=== PATIENT | female | born 1985 | race Caucasian/White ===

== ENCOUNTER → 2017-11-27 | Outpatient (CLI) | payer BC | END | disposition home or self-care (01) | LOC: C.PATHSPEC 12:50 | PROVIDERS: ATTEND Obstetrics & Gynecology | DX: R87.810 Cervical high risk human papillomavirus (HPV) DNA test positive (principal); R87.612 Low grade squamous intraepithelial lesion on cytologic smear of cervix (LGSIL) ==

== ENCOUNTER 2021-10-12 15:37 | Inpatient (IN) ==
--- NOTE | 2021-10-12 15:56 | History & Physical Report ---
Date of Service October 12, 2021 Assessment & Plan (1) at 37 weeks gestation or greater with abnormal testing: Plan: 38+2 Patient has had a history of abnormal testing over the last week with abnormal nonstress test requiring prolonged monitoring in labor and delivery and subsequent biophysical profiles today her nonstress test was reviewed and was not reactive in the office additionally it was noted that her Doppler recently done in the hospital was elevated as well there was no reversed end-diastolic flow but there was an elevated Doppler. Dr. Fortune in the office reviewed this case with [facility] maternal- medicine their recommendation at this time was to deliver the baby patient presents on labor and delivery and I reviewed this with her I agree delivery should be enacted as there are risks and waiting specifically stillbirth I discussed 2 potential options 1 would be induction of labor and 1 would be section I am worried with an induction of labor that the baby may not tolerate labor as there is an elevated Doppler and she is repeatedly for performed poorly on nonstress tests I am worried that the heart rate tracing will not allow a proper induction of labor however I did offer this to the patient I said that potentially we could do this and if the tracing worsened we would proceed to section I also discussed the option of proceeding directly to section we discussed that because of this is that it is a major surgery we discussed the risks of this however under the circumstances I think this is what the patient favors with the abnormal testing and concern for placenta not functioning at its best. section. The patient was counseled to the nature of the procedure including alternatives such as labor. Risks were discussed including bleeding infection injury to bowel bladder ureter vessels and even baby. Deep Vein thrombosis, pulmonary embolus discussed. Breakdown of incision reviewed. Deep vein thrombosis pulmonary embolus hernia and failure of the incision to heal were discussed Patient verbalized understanding of this and was given ample time to ask questions History of Present Illness Primary Care Provider: Mikhail Nowak MD Allergies Allergy/AdvReac Type Severity Reaction Status Date / Time amoxicillin [From Augmentin] Allergy Gastrointestinal Verified 10/12/21 14:14 Upset buspirone [From BuSpar] Allergy Irritable Verified 10/12/21 14:14 clavulanic acid Allergy Gastrointestinal Verified 10/12/21 14:14 [From Augmentin] Upset Home Medications Medication Instructions Recorded Confirmed Type albuterol sulfate 90 mcg/actuation INHALATION gm 11/19/18 10/12/21 History aerosol inhaler levothyroxine 50 mcg tablet 100 mcg PO DAILY tab 11/19/18 10/12/21 History lorazepam 0.5 mg tablet 0.5 mg PO DAILY PRN tab 11/19/18 10/12/21 History mesalamine 800 mg tablet,delayed 1,600 mg PO DAILY tab 11/19/18 10/12/21 History release valacyclovir 1 gram tablet 1,000 mg PO Q12H PRN tab 11/19/18 10/12/21 History insulin admin supplies [InPen (for SUBCUT 03/10/21 10/12/21 History Novolog or Fiasp)] insulin detemir U-100 100 unit/mL 48 unit SUBCUT QPM 03/10/21 10/12/21 History subcutaneous solution (Levemir U-100 Insulin) sertraline 25 mg tablet (Zoloft) 25 mg PO DAILY 06/14/21 10/12/21 History aspirin 81 mg chewable tablet 81 mg PO DAILY 10/07/21 10/12/21 History fluticasone furoate 200 1 inh INHALATION DAILY 10/07/21 10/12/21 History mcg-vilanterol 25 mcg/dose inhalation powder (Breo Ellipta) Patient History Medical History (Updated 10/08/21 @ 15:59 by Josie Sawyer MD) Anxiety Asthma Crohn's disease of both small and large intestine with complication Diabetes dx type 2 in Mar 2016 Encounter for preconception consultation GERD (gastroesophageal reflux disease) Hypothyroidism Recurrent major depressive disorder in partial remission Surgical History H/O colonoscopy History of colposcopy History of wisdom tooth extraction Family History (Updated 03/10/21 @ 12:13 by Yas Andujar RN) Grandmother (Maternal) Breast cancer Father Dyslipidemia Grandfather (Maternal) Diabetes Dyslipidemia Coronary heart disease Grandmother (Paternal) Breast cancer Gastrointestinal complaints, nonspecific Denies family history of Ovarian cancer Prostate cancer Colorectal cancer Social History (Updated 03/10/21 @ 15:09 by Yas Andujar RN) Smoking Status: Never smoker Second Hand Exposure: No; Hx Alcohol Use: No Hx Substance Use: No Preferred Language: Romanian Communication Ability: Effective Visual Impairment: No Limitations Hearing Ability: Normal Professor Of Visual Arts Required: No Beliefs That Will Affect Care: None marital status: marital status details: Freedom Siegel (37) Current Living Situation: Spouse Current Living Situation Comment: Lives with . 1 Dog current occupational status: employed current occupation: Teacher Feels Safe at Home: Yes Assistive Devices: None Review of Systems as per Subjective / HPI Physical Exam Constitutional: WD/WN, vitals as above well developed and well nourished Respiratory: normal respiratory effort, lungs clear to auscultation normal respiratory effort Cardiovascular: RRR, no murmur, no edema Gastrointestinal (Abdomen): normal bowel sounds, soft, nontender, no hepatosplenomegaly Coding Level of Care Code None Diagnoses at 37 weeks gestation or greater with abnormal testing
[2021-10-12] MEDS ORDERED: CITRIC ACID/SODIUM CITRATE 15 ML UDC PO SCH (16:00)
[2021-10-12] MEDS ORDERED: LACTATED RINGER'S 1,000 ML IV SCH (16:00)
[2021-10-12] MEDS ORDERED: ceFAZolin 2000MG 2,000 MG/15 ML SYR IV SCH (16:00)
[2021-10-12 16:30] LABS: Basophils # (auto) 0.03 K/uL (0-0.2); Basophils % (auto) 0.2 %; Eosinophils # (auto) 0.28 K/uL (0-0.5); Hematocrit (blood only) 30.5 % (37-47); Hemoglobin 10.3 g/dL (12.0-16.0); Immature Granulocytes # (auto) 0.11 K/uL (0.00-0.02); Immature Granulocytes % (auto) 0.8 %; Lymphocytes # (auto) 2.39 K/uL (1.2-3.4); Lymphocytes % (auto) 17.1 %; Mean Corpuscular Hemoglobin 26.8 pg (25-34); Mean Corpuscular Hgb Conc 33.8 g/dL (32-36); Mean Corpuscular Volume 79.4 fL (80-100); Mean Platelet Volume 11.3 fL (7.4-10.4); Monocytes # (auto) 0.84 K/uL (0.11-0.59); Neutrophils # (auto) 10.33 K/uL (1.4-6.5); Neutrophils % (auto) 73.9 %; Platelet Count 209 K/uL (130-400); RDW Coefficient of Variation 13.1 % (11.5-14.5); RDW Standard Deviation 37.9 fL (36.4-46.3); Red Blood Count 3.84 M/uL (4.2-5.4); White Blood Count 13.98 K/uL (4.8-10.8)
--- NOTE | 2021-10-12 16:55 | Anesthesiology Consultation ---
Date of Service October 12, 2021 Assessment & Plan (1) Encounter for pre-operative examination: Chart Review Chart Review: Acceptable Risk for Surgery and Patient NOT seen in Pre Admission Testing Consults Requested none History Height/Weight Height: 4 ft 11 in Weight: 64.41 kg Allergies Allergy/AdvReac Type Severity Reaction Status Date / Time amoxicillin [From Augmentin] Allergy Gastrointestinal Verified 10/12/21 16:01 Upset buspirone [From BuSpar] Allergy Irritable Verified 10/12/21 16:01 clavulanic acid Allergy Gastrointestinal Verified 10/12/21 16:01 [From Augmentin] Upset Medications Home Medications Medication Instructions Recorded Confirmed Last Taken albuterol sulfate 90 mcg/actuation INHALATION PRN gm 11/19/18 10/12/21 Unknown aerosol inhaler levothyroxine 50 mcg tablet 100 mcg PO DAILY tab 11/19/18 10/12/21 10/06/21 22:00 lorazepam 0.5 mg tablet 0.5 mg PO DAILY PRN tab 11/19/18 10/12/21 Unknown mesalamine 800 mg tablet,delayed 1,600 mg PO DAILY tab 11/19/18 10/12/21 10/06/21 22:00 release valacyclovir 1 gram tablet 1,000 mg PO Q12H PRN tab 11/19/18 10/12/21 Unknown insulin admin supplies [InPen (for SUBCUT 03/10/21 10/12/21 Unknown Novolog or Fiasp)] insulin detemir U-100 100 unit/mL 48 unit SUBCUT QPM 03/10/21 10/12/21 10/06/21 22:00 subcutaneous solution (Levemir U-100 Insulin) sertraline 25 mg tablet (Zoloft) 25 mg PO DAILY 06/14/21 10/12/21 10/11/21 21:00 aspirin 81 mg chewable tablet 81 mg PO DAILY 10/07/21 10/12/21 10/06/21 22:00 fluticasone furoate 200 1 inh INHALATION DAILY 10/07/21 10/12/21 10/07/21 08:00 mcg-vilanterol 25 mcg/dose inhalation powder (Breo Ellipta) Past Medical History Medical History Anxiety Asthma Crohn's disease of both small and large intestine with complication Diabetes dx type 2 in Mar 2016 Encounter for preconception consultation GERD (gastroesophageal reflux disease) Hypothyroidism Recurrent major depressive disorder in partial remission Past Family History Family History Grandmother (Maternal) Breast cancer Father Dyslipidemia Grandfather (Maternal) Diabetes Dyslipidemia Coronary heart disease Grandmother (Paternal) Breast cancer Gastrointestinal complaints, nonspecific Denies family history of Ovarian cancer Prostate cancer Colorectal cancer Past Surgical History Surgical History H/O colonoscopy History of colposcopy History of wisdom tooth extraction Social History Smoking Status: Never smoker Hx Alcohol Use: No Hx Substance Use: No substance use type: does not use Physical Exam Vital Signs Last Vital Signs Temp 99.3 F 10/12/21 16:05 Pulse 97 H 10/12/21 16:21 Resp 18 10/12/21 16:05 BP 153/82 H 10/12/21 16:21 Testing Laboratory Results 10/12/21 16:08
[2021-10-12] MEDS ORDERED: fentaNYL citrate 100 MCG/2 ML VIAL ONE (17:19)
[2021-10-12] MEDS ORDERED: MoRPHine SULFATE PF 1 MG/ML 10 ML AMP/VIAL ONE (17:19)
[2021-10-12] MEDS ORDERED: NALOXONE HCL 0.4 MG/1 ML VIAL/CARP IV PRN (18:20)
[2021-10-12] MEDS ORDERED: LACTATED RINGER'S 500 ML IV PRN (18:20)
[2021-10-12] MEDS ORDERED: diphenhydrAMINE 50 MG/ML VIAL IV PRN (18:20)
[2021-10-12] MEDS ORDERED: NALOXONE HCL 1 MG in SODIUM CHLORIDE 0.9% 1000ML 1,000 ML IV PRN (18:20)
[2021-10-12] MEDS ORDERED: KETOROLAC 30 MG/ML VIAL IV PRN (18:20)
[2021-10-12] MEDS ORDERED: ACETAMINOPHEN 325 MG TAB PO PRN (18:20)
[2021-10-12] MEDS ORDERED: MoRPHine SULFATE PF 1 MG/ML 10 ML AMP/VIAL INT SPINAL ONE (18:20)
[2021-10-12] MEDS ORDERED: NALOXONE HCL 0.08 MG in SYRINGE 1.8 ML IV PRN (18:20)
[2021-10-12] MEDS ORDERED: ePHEDrine sulfate 50 MG/ML AMP IV PRN (18:20)
[2021-10-12] MEDS ORDERED: HYDROmorphone INJ 0.5 MG/0.5 ML SYR IV PRN (18:20)
[2021-10-12] MEDS ORDERED: NALBUPHINE HCL INJ 10 MG/ML AMP IV PRN (18:20)
[2021-10-12] MEDS ORDERED: NO NARCOTICS OR SEDATIVES SCH (18:30)
[2021-10-12] MEDS ORDERED: SODIUM CHLORIDE 0.9% 1000ML 1,000 ML IV SCH (18:30)
[2021-10-12] MEDS ORDERED: DC INTRASPINAL MORPHINE SCH (18:30)
--- NOTE | 2021-10-12 19:01 | Operative Report ---
PG Post Operative Report Pre & Post Diagnosis Operation Date: 10/12/21 17:50 Pre-Op Diagnosis: at 37 weeks with abnormal testing. Post-Op Diagnosis: at 37 weeks with abnormal testing. I identified the patient and participated in the time-out.: Yes Procedure Operation Date: 10/12/21 17:50 Actual Procedures p Section in LD for living female child at 1825(Bilateral) - Sergey Bae MD, FACOG Surgeon Sergey Bae MD, FACOG Coordinate Measuring Machine Technician . Estimated Blood Loss 500 Findings Consistent with Post-Op Diagnosis Specimens cord gases, blood, placenta Description of Procedure Regional anesthetic had been given by anesthesia patient was prepped and draped with a leftward tilt preoperative antibiotics had been given in appropriate timing by anesthesiology. Once the prep was allowed to fully dry timeout was performed. Pickups with teeth were used to test the incision area was found to be adequate for incision as the patient did not feel sharp pain. Scalpel was used to make a Pfannenstiel incision on the lower abdomen. We then cut through the subcutaneous fat down to the level of the anterior rectus sheath fascia this was cut in the midline and then extended laterally with the curved Wells scissors. At this stage we then placed 2 Dominique clamps on the anterior aspect of the fascia. Using the curved Wells's we are able to dissect the fascia superiorly away from the rectus muscles. Care was taken to maintain hemostasis. Dominique clamps were then placed to the inferior aspect of the anterior sheath of the fascia. Fascia was then dissected away from the rectus muscles inferiorly towards the pubic bone. A Dominique was then placed in the midline both inferiorly and superiorly. This was to allow exposure by retraction rectus muscles were in the midline with were then able to cut through the peritoneum and then enter the peritoneal cavity. Opening was enlarged to allow exposure of the peritoneal cavity both superiorly and inferiorly. Once adequate space was obtained a bladder retractor was placed to expose the lower segment Metzenbaums were used to dissect the bladder flap inferiorly away from the uterus. This was done sharply bladder retractor was then repositioned to expose the lower segment of the uterus Fresh scalpel was used to make a low transverse incision on the uterus. Uterus was then entered bluntly with the operators finger, membranes ruptured and the opening was enlarged using the operators fingers bluntly pulling superiorly and inferiorly to allow exposure. Baby was delivered by first flexion of the head elevation of the head out of the pelvis and then pressure by the bakery assistant on the maternal abdomen. Baby's head was then delivered mouth and then nares were suctioned and then using gentle traction the baby was fully delivered. Live vigorous infant. Fluid was clear cord clamped and cut cord gases obtained cord blood obtained baby handed to pediatrics. Placenta removed was removed with traction we ensure the entire placenta was removed with a moist lap sponge into the uterus. Loose nuchal x1 Uterus was then exteriorized. IV Pitocin had been started by anesthesia tone improved there were no extensions the uterus was then closed using 0 Monocryl in a 2 layer closure the first layer closed in a running locked fashion from left to right and then a second closure from left to right in a running nonlocked fashion. At this stage hemostasis was excellent. Uterus was placed back in the peritoneal cavity with suction irrigation out and inspection of the uterus at this stage revealed excellent hemostasis Retractors were removed urine color was clear at this stage of the case we inspected the rectus muscles they were hemostatic fascia was closed with 0 Vicryl subcutaneous fat was irrigated and closed with 3-0 Vicryl skin closed with 4-0 subcuticular Monocryl I attest to the content of the Intraoperative Record and any orders documented therein. Any exceptions are noted below. OB Procedure Charges 81311
[2021-10-12] MEDS ORDERED: KETOROLAC 30 MG/ML VIAL ONE (19:10)
[2021-10-12] MEDS ORDERED: OXYTOCIN 10 UNITS/ML 10ML VIAL ONE (19:10)
[2021-10-12] MEDS ORDERED: ONDANSETRON INJ 2 MG/ML 2 ML VIAL ONE (19:10)
[2021-10-12] MEDS ORDERED: SENNA 8.6 MG TAB PO PRN (19:23)
[2021-10-12] MEDS ORDERED: HYDROCORTISONE ACETATE 25 MG SUPP PR PRN (19:23)
[2021-10-12] MEDS ORDERED: IBUPROFEN 600 MG TAB PO PRN (19:23)
[2021-10-12] MEDS ORDERED: BENZOCAINE 20% AER SPR 82.5 GM CAN EXT PRN (19:23)
[2021-10-12] MEDS ORDERED: MAGNESIUM HYDROXIDE SUSP 30 ML UDC PO PRN (19:23)
[2021-10-12] MEDS ORDERED: DIPHTHERIA/TETANUS/PERTUSSIS 0.5 ML SYR/VIAL IM ONE (19:23)
[2021-10-12 19:31] LABS: Base Excess Cord Venous Blood -3.7 mEq/L (-7.7-1.9); Cord Venous Blood HCO3 24 mmol/L (18.4-26.8); Cord Venous Blood PCO2 50 mmHg (30.4-57.2); Cord Venous Blood PO2 32 mmHg (14.1-43.3); Cord Venous Blood pH 7.28 (7.20-7.44); O2 Saturation Cord Venous Bld 66.9 % (<68)
[2021-10-12 19:32] LABS: Base Excess Cord Arterial Bld 0.3 mEq/L (-9-1.8); CO2 Cord Arterial Blood 89 mmHg (39.1-73.5); HCO3 Cord Arterial Blood 32 mmol/L (19.7-28.5); Oxygen Sat Cord Arterial Blood < 60.0 % (<60); pH Cord Arterial Blood 7.16 (7.1-7.38)
[2021-10-12 19:33] LABS: PO2 Cord Arterial Blood < 6 mmHg (4.1-31.7)
[2021-10-12] MEDS: OXYTOCIN 20 UNITS in LACTATED RINGER'S 1,000 ML IV SCH (20:04)
--- NOTE | 2021-10-12 21:17 | Anesthesiology Progress Note ---
Date of Service October 12, 2021 Anesthesia Post Procedure Vital Signs Vital Signs: Temp Pulse Resp BP Pulse Ox 10/12/21 21:05 79 151/84 H 10/12/21 21:04 82 100 10/12/21 20:59 87 100 10/12/21 20:54 76 100 10/12/21 20:49 82 100 10/12/21 20:44 81 100 10/12/21 20:39 81 98 10/12/21 20:35 98.1 F 78 18 135/82 10/12/21 20:34 79 100 10/12/21 20:29 77 100 10/12/21 20:24 77 100 10/12/21 20:19 71 99 10/12/21 20:14 80 100 10/12/21 20:09 84 100 10/12/21 20:04 97.9 F 74 18 131/80 100 10/12/21 19:59 77 100 10/12/21 19:56 80 90 10/12/21 19:54 81 128/80 100 10/12/21 19:49 80 100 10/12/21 19:46 73 18 126/69 10/12/21 19:44 78 100 10/12/21 19:39 82 98 10/12/21 19:34 97.5 F L 85 18 107/73 100 10/12/21 19:29 84 100 10/12/21 19:25 90 18 107/56 L 10/12/21 19:24 88 100 10/12/21 19:19 94 H 100 10/12/21 19:16 85 18 104/58 L 10/12/21 19:14 89 100 10/12/21 19:13 90 91 10/12/21 19:09 97 H 100 10/12/21 19:04 97.9 F 92 H 18 107/66 100 10/12/21 17:37 83 141/84 H 10/12/21 17:22 98 H 184/96 H 10/12/21 17:06 94 H 177/91 H 10/12/21 16:21 97 H 153/82 H 10/12/21 16:11 93 H 141/83 H 10/12/21 16:05 99.3 F 18 Transfer of Care Handoff Completed per policy Notes Mental Status: alert / awake / arousable and participated in evaluation Patient Amnestic to Procedure: Yes Nausea / Vomiting: adequately controlled Pain: adequately controlled Airway Patency, RR, SpO2: stable & adequate BP & HR: stable & adequate Hydration State: stable & adequate Neuraxial Anesthesia: was administered and sensory block is resolving Anesthetic Complications: no major complications apparent and Pt Satisfied with anesthetic care
[2021-10-12] MEDS: DOCUSATE SODIUM 100 MG CAP PO SCH (22:39)
[2021-10-12] MEDS ORDERED: CARBOHYDRATES FOR HYPOGLYCEMIA PO PRN (22:59)
[2021-10-12] MEDS ORDERED: GLUCOSE 40% GEL 15 GM TUBE PO PRN (22:59)
[2021-10-12] MEDS ORDERED: GLUCAGON FOR INJ 1 MG VIAL SQ PRN (22:59)
[2021-10-12] MEDS ORDERED: GLUCOSE 10 TABS/TUBE PO PRN (22:59)
[2021-10-12] MEDS ORDERED: DEXTROSE 50% 50 ML SYRINGE IV PRN (22:59)
--- NOTE | 2021-10-12 23:02 | Hospitalist Consultation ---
Date of Consultation October 12, 2021 Assessment & Plan (1) Encounter for care and examination after delivery: Final Assessment and Recommendations as follows : state DM2 previously on oral medications, on insulin since Well-controlled as of recent outpatient hemoglobin A1c of 7 last August 2021 hypothyroidism, euthyroid as of recent outpatient TSH IBD, stable on Asacol regimen Anemia of Basal insulin adjusted for clear liquid diet for now, ISS BG goal 1 10-1 40, carb count coverage DVT prophylaxis. SCDs Thank you very much for this consultation. Dr. Dc will follow patient's progress. Text document was generated using [employer] voice recognition software. It may contain grammatical or spelling errors. Kindly contact undersigned for clarification of any documentation item in question. History of Present Illness Reason for Consultation: Medical management Requesting Physician: Dr. Gotti Attending Physician: Sergey Bae MD, FACOG History of Present Illness PCP: Dr. Nowak History obtained from patient and records. Medical history significant for DM2 (previously on oral medications, on insulin since ), hypothyroidism, IBD. Patient underwent section yesterday secondary to abnormal testing. Postop discomfort tolerable. Patient denies chest pain, SOB. Medical History as above Surgical History : Dental surgery, section Family History : Heart disease, DM, breast cancer Personal/Social history : Non-smoker, occasional EtOH intake, schoolteacher Allergies Allergy/AdvReac Type Severity Reaction Status Date / Time amoxicillin [From Augmentin] Allergy Gastrointestinal Verified 10/12/21 16:01 Upset buspirone [From BuSpar] Allergy Irritable Verified 10/12/21 16:01 clavulanic acid Allergy Gastrointestinal Verified 10/12/21 16:01 [From Augmentin] Upset Home Medications Medication Instructions Recorded Confirmed Type albuterol sulfate 90 mcg/actuation INHALATION PRN gm 11/19/18 10/12/21 History aerosol inhaler levothyroxine 50 mcg tablet 100 mcg PO DAILY tab 11/19/18 10/12/21 History lorazepam 0.5 mg tablet 0.5 mg PO DAILY PRN tab 11/19/18 10/12/21 History mesalamine 800 mg tablet,delayed 1,600 mg PO DAILY tab 11/19/18 10/12/21 History release valacyclovir 1 gram tablet 1,000 mg PO Q12H PRN tab 11/19/18 10/12/21 History insulin admin supplies [InPen (for SUBCUT 03/10/21 10/12/21 History Novolog or Fiasp)] insulin detemir U-100 100 unit/mL 48 unit SUBCUT QPM 03/10/21 10/12/21 History subcutaneous solution (Levemir U-100 Insulin) sertraline 25 mg tablet (Zoloft) 25 mg PO DAILY 06/14/21 10/12/21 History aspirin 81 mg chewable tablet 81 mg PO DAILY 10/07/21 10/12/21 History fluticasone furoate 200 1 inh INHALATION DAILY 10/07/21 10/12/21 History mcg-vilanterol 25 mcg/dose inhalation powder (Breo Ellipta) Patient History Medical History Anxiety Asthma Crohn's disease of both small and large intestine with complication Diabetes dx type 2 in Mar 2016 Encounter for preconception consultation GERD (gastroesophageal reflux disease) Hypothyroidism Recurrent major depressive disorder in partial remission Surgical History H/O colonoscopy History of colposcopy History of wisdom tooth extraction Family History Grandmother (Maternal) Breast cancer Father Dyslipidemia Grandfather (Maternal) Diabetes Dyslipidemia Coronary heart disease Grandmother (Paternal) Breast cancer Gastrointestinal complaints, nonspecific Denies family history of Ovarian cancer Prostate cancer Colorectal cancer Social History (Updated 03/10/21 @ 15:09 by Yas Andujar RN) Smoking Status: Never smoker Second Hand Exposure: No; Hx Alcohol Use: No Hx Substance Use: No Preferred Language: Syriac Communication Ability: Effective Visual Impairment: No Limitations Hearing Ability: Normal Truck Chauffeur Required: No Beliefs That Will Affect Care: None marital status: marital status details: Freedom Siegel (37) Current Living Situation: Spouse Current Living Situation Comment: Lives with . 1 Dog current occupational status: employed current occupation: Teacher Feels Safe at Home: Yes Assistive Devices: None Review of Systems Review of Systems: As per HPI, all other systems reviewed and negative Physical Exam Physical Exam: GENERAL: Comfortable, pleasant, no respiratory distress SKIN: Pallor, warm HEENT: Pale palpebral conjunctivae, no ptosis, dry buccal mucosa NECK : Supple, no tenderness CHEST : CTA, no tenderness HEART : RRR, no obvious murmurs ABDOMEN: Some distention, no overt tenderness EXTREMITIES : Minimal LE swelling, no LE tenderness, no other conspicuous deformities noted NEUROLOGIC : Coherent, no facial asymmetry, no other gross focality Results & Data Results & Data ([facility]) Vital Signs (Past 12 Hours) Vital Signs Temp Pulse Resp BP Pulse Ox 10/12/21 22:34 16 99 10/12/21 21:36 36.8 C 88 16 152/88 H 100 10/12/21 21:05 36.7 C 79 18 151/84 H 10/12/21 21:04 82 100 10/12/21 20:59 87 100 10/12/21 20:54 76 100 10/12/21 20:49 82 100 10/12/21 20:44 81 100 10/12/21 20:39 81 98 10/12/21 20:35 36.7 C 78 18 135/82 10/12/21 20:34 79 100 10/12/21 20:29 77 100 10/12/21 20:24 77 100 10/12/21 20:19 71 99 10/12/21 20:14 80 100 10/12/21 20:09 84 100 10/12/21 20:04 36.6 C 74 18 131/80 100 10/12/21 19:59 77 100 10/12/21 19:56 80 90 10/12/21 19:54 81 128/80 100 10/12/21 19:49 80 100 10/12/21 19:46 73 18 126/69 10/12/21 19:44 78 100 10/12/21 19:39 82 98 10/12/21 19:34 36.4 C L 85 18 107/73 100 10/12/21 19:29 84 100 10/12/21 19:25 90 18 107/56 L 10/12/21 19:24 88 100 10/12/21 19:19 94 H 100 10/12/21 19:16 85 18 104/58 L 10/12/21 19:14 89 100 10/12/21 19:13 90 91 10/12/21 19:09 97 H 100 10/12/21 19:04 36.6 C 92 H 18 107/66 100 10/12/21 17:37 83 141/84 H 10/12/21 17:22 98 H 184/96 H 10/12/21 17:06 94 H 177/91 H 10/12/21 16:21 97 H 153/82 H 10/12/21 16:11 93 H 141/83 H 10/12/21 16:05 37.4 C 18 Laboratory Results Laboratory Results WBC 13.98 K/uL (4.8-10.8) H 10/12/21 16:08 RBC 3.84 M/uL (4.2-5.4) L 10/12/21 16:08 Hgb 10.3 g/dL (12.0-16.0) L 10/12/21 16:08 Hct 30.5 % (37-47) L 10/12/21 16:08 MCV 79.4 fL (80-100) L 10/12/21 16:08 MCH 26.8 pg (25-34) 10/12/21 16:08 MCHC 33.8 g/dL (32-36) 10/12/21 16:08 RDW Std Deviation 37.9 fL (36.4-46.3) 10/12/21 16:08 RDW Coeff of Willa 13.1 % (11.5-14.5) 10/12/21 16:08 Plt Count 209 K/uL (130-400) 10/12/21 16:08 MPV 11.3 fL (7.4-10.4) H 10/12/21 16:08 Immature Gran % (Auto) 0.8 % 10/12/21 16:08 Neut % (Auto) 73.9 % 10/12/21 16:08 Lymph % (Auto) 17.1 % 10/12/21 16:08 Day % (Auto) 6.0 % 10/12/21 16:08 Eos % (Auto) 2.0 % 10/12/21 16:08 Baso % (Auto) 0.2 % 10/12/21 16:08 Neut # (Auto) 10.33 K/uL (1.4-6.5) H 10/12/21 16:08 Lymph # (Auto) 2.39 K/uL (1.2-3.4) 10/12/21 16:08 Day # (Auto) 0.84 K/uL (0.11-0.59) H 10/12/21 16:08 Eos # (Auto) 0.28 K/uL (0-0.5) 10/12/21 16:08 Baso # (Auto) 0.03 K/uL (0-0.2) 10/12/21 16:08 Immature Gran # (Auto) 0.11 K/uL (0.00-0.02) H 10/12/21 16:08 Cord ABG pH 7.16 (7.1-7.38) 10/12/21 18:52 Cord ABG pCO2 89 mmHg (39.1-73.5) H 10/12/21 18:52 Cord ABG pO2 < 6 mmHg (4.1-31.7) 10/12/21 18:52 Cord ABG HCO3 32 mmol/L (19.7-28.5) H 10/12/21 18:52 Cord ABG Base Excess 0.3 mEq/L (-9-1.8) 10/12/21 18:52 Cord ABG O2 Sat < 60.0 % (<60) 10/12/21 18:52 Cord VBG pH 7.28 (7.20-7.44) 10/12/21 18:52 Cord VBG pCO2 50 mmHg (30.4-57.2) 10/12/21 18:52 Cord VBG pO2 32 mmHg (14.1-43.3) 10/12/21 18:52 Cord VBG HCO3 24 mmol/L (18.4-26.8) 10/12/21 18:52 Cord VBG Base Excess -3.7 mEq/L (-7.7-1.9) 10/12/21 18:52 Cord VBG O2 Sat 66.9 % (<68) 10/12/21 18:52 Blood Gas Comments SHELL 10/12/21 18:52 Blood Gas Comments SHELL 10/12/21 18:52 SARS-CoV-2, RNA, NAAT NEGATIVE (NEGATIVE) 10/12/21 15:54 Blood Type O Positive 10/12/21 16:08 Antibody Screen NEGATIVE 10/12/21 16:08
[2021-10-13] MEDS: INSULIN ASPART PER UNIT SC SCH ×5 (00:13→21:16)
[2021-10-13] MEDS: SIMETHICONE 80 MG CHEW PO SCH ×5 (01:13→21:09)
[2021-10-13] MEDS: LACTATED RINGER'S 1,000 ML IV SCH ×3 (01:14→11:50)
[2021-10-13] MEDS: OXYTOCIN 20 UNITS in LACTATED RINGER'S 1,000 ML IV SCH (04:30)
--- NOTE | 2021-10-13 06:17 | Obstetrical Progress Note ---
Date of Service October 13, 2021 Assessment & Plan (1) Encounter for care and examination after delivery: Plan: Patient is a 36-year-old now female status post delivered at 38 and 2/7 weeks postop day 1. -GBS(-), Rubella immune, O+, Antibody negative -Continue routine care -Pain control with tylenol, Ibuprofen, oxycodone when able. -Ambulation as tolerated and encouraged -Encouraged , discuss with counsellor if necessary, continue supplementing with formula -Hgb 10.3 -OB f/u appointment in [address] Bae Admission and Anticipated Discharge Date Admission Date: October 12, 2021 Supervising Physician Co-Signing Physician Notes Resident Physician Supervision Note: I was present with Dr. Bush during the history and exam. I discussed the case with the resident and agree with the findings and plan as documented in the note. Any exceptions or clarifications are listed here: [None] Documented By: Sergey Bae MD, FACOG Subjective Patient is a 36-year-old now female status post delivered at 38 and 2/7 weeks postop day 1. complicated by advanced maternal age, type 2 diabetes, and hypothyroidism. Patient overall doing well but does have the complaint of pain. She reports is a 5 out of 10. Reports not having taken any medication except for last night to help her sleep. Encouraged that she is able to take pain medication to help with her symptoms. Otherwise patient reports that she would like to breast-feed but is unsure if it is safe to do with her diabetes and would like to discuss with the gyroscope repairer if this is okay. Passing gas and urinating without difficulty. Notes that her blood sugar is "low" and reporting a level of 105 at the time of interview. Would like to get something to eat. Denies chest pain, shortness of breath, nausea, vomiting, calf pain, or headaches. No other complaints at this time. Review of Systems Review of Systems: All systems reviewed & are unremarkable except as noted in HPI & below Physical Exam Constitutional: WD/WN, vitals as above Eyes: + anicteric sclerae Neck: trachea midline, no thyromegaly Respiratory: normal respiratory effort, lungs clear to auscultation Cardiovascular: RRR, no murmur, no edema Gastrointestinal (Abdomen): Inspection/Auscultation: normal bowel sounds Percussion/Palpation: abdomen soft Diastases recti noted. Musculoskeletal: Head/Neck/Chest: normocephalic and head atraumatic Skin: no rashes, warm and dry Surgical scar noted at the lower abdomen that is clean without any surrounding erythema or discharge. Neurologic: moves all extremities Psychiatric: A+Ox3, euthymic affect Genitourinary: Uterus palpated 2 cm below the umbilicus, firm Results & Data ([facility]) Vital Signs (Past 12 Hours) Vital Signs Temp Pulse Resp BP BP Pulse Ox 10/13/21 04:54 96 10/13/21 04:53 36.8 C 16 131/79 97 10/13/21 04:40 14 96 10/13/21 03:45 15 96 10/13/21 02:21 14 96 10/13/21 01:30 16 97 10/13/21 00:54 36.8 C 16 98 10/13/21 00:25 87 14 136/83 100 10/12/21 23:30 18 98 10/12/21 22:34 16 99 10/12/21 21:36 36.8 C 88 16 152/88 H 100 10/12/21 21:05 36.7 C 79 18 151/84 H 10/12/21 21:04 82 100 10/12/21 20:59 87 100 10/12/21 20:54 76 100 10/12/21 20:49 82 100 10/12/21 20:44 81 100 10/12/21 20:39 81 98 10/12/21 20:35 36.7 C 78 18 135/82 10/12/21 20:34 79 100 10/12/21 20:29 77 100 10/12/21 20:24 77 100 10/12/21 20:19 71 99 10/12/21 20:14 80 100 10/12/21 20:09 84 100 10/12/21 20:04 36.6 C 74 18 131/80 100 10/12/21 19:59 77 100 10/12/21 19:56 80 90 10/12/21 19:54 81 128/80 100 10/12/21 19:49 80 100 10/12/21 19:46 73 18 126/69 10/12/21 19:44 78 100 10/12/21 19:39 82 98 10/12/21 19:34 36.4 C L 85 18 107/73 100 10/12/21 19:29 84 100 10/12/21 19:25 90 18 107/56 L 10/12/21 19:24 88 100 10/12/21 19:19 94 H 100 10/12/21 19:16 85 18 104/58 L 10/12/21 19:14 89 100 10/12/21 19:13 90 91 10/12/21 19:09 97 H 100 10/12/21 19:04 36.6 C 92 H 18 107/66 100
[2021-10-13] MEDS: LEVOTHYROXINE SODIUM 100 MCG TABLET PO SCH (08:45)
[2021-10-13] MEDS: DOCUSATE SODIUM 100 MG CAP PO SCH ×2 (08:46→21:09)
[2021-10-13] MEDS: FERROUS SULFATE 325 MG TAB PO SCH (08:50)
[2021-10-13] MEDS: SERTRALINE HCL 50 MG TABLET PO SCH (08:50)
[2021-10-13] MEDS: PRENATAL VITAMIN 1 TAB PO SCH (08:50)
[2021-10-13 09:26] LABS: Hematocrit (blood only) 25.8 % (37-47); Hemoglobin 8.5 g/dL (12.0-16.0); Mean Corpuscular Hemoglobin 26.2 pg (25-34); Mean Corpuscular Hgb Conc 32.9 g/dL (32-36); Mean Corpuscular Volume 79.4 fL (80-100); Mean Platelet Volume 11.2 fL (7.4-10.4); Platelet Count 186 K/uL (130-400); RDW Coefficient of Variation 13.2 % (11.5-14.5); RDW Standard Deviation 38.3 fL (36.4-46.3); Red Blood Count 3.25 M/uL (4.2-5.4); White Blood Count 13.53 K/uL (4.8-10.8)
[2021-10-13] MEDS ORDERED: MESALAMINE 800 MG TABCR PO SCH (09:40)
[2021-10-13 09:52] LABS: BUN Creatinine Ratio 21.5 (10-20); Calcium 8.1 mg/dl (8.5-10.1); Creatinine Clr Calc Pharmacy 97.6 ml/min; Est GFR (African American) 132.4 ml/min; Est GFR (Non-African American) 114.2 ml/min
[2021-10-13 09:55] LABS: Basophils # (auto) 0.03 K/uL (0-0.2); Basophils % (auto) 0.2 %; Eosinophils # (auto) 0.22 K/uL (0-0.5); Eosinophils % (auto) 1.6 %; Immature Granulocytes # (auto) 0.09 K/uL (0.00-0.02); Immature Granulocytes % (auto) 0.7 %; Lymphocytes # (auto) 2.85 K/uL (1.2-3.4); Lymphocytes % (auto) 21.1 %; Monocytes # (auto) 1.06 K/uL (0.11-0.59); Monocytes % (auto) 7.8 %; Neutrophils # (auto) 9.28 K/uL (1.4-6.5); Neutrophils % (auto) 68.6 %
--- NOTE | 2021-10-13 11:42 | Hospitalist Progress Note ---
Date of Service October 13, 2021 Assessment & Plan (1) Diabetes mellitus affecting : Plan: Encounter for care and examination after delivery: state DM2 previously on oral medications, on insulin since Well-controlled as of recent outpatient hemoglobin A1c of 7 last August 2021 Basal insulin adjusted Patient was using 48 units of Levemir (while ), now will decrease to 20 units ISS BG goal 110-140, carb count coverage -now using about 4 to 6 units with meals Follows with endocrinology, Taco Donaldson PA-C at [facility] [place] Patient reports currently she has appointment on October 27. Continue to closely monitor blood sugar levels while inpatient Hypothyroidism, euthyroid as of recent outpatient TSH - will likely need adjustment of dose as well post- Follows w/ endocrinology - Taco Donaldson PA-C at [facility] [place] IBD, stable on Asacol regimen Anemia of DVT prophylaxis. SCDs Thank you very much for this consultation. Admission and Anticipated Discharge Date Admission Date: October 12, 2021 Subjective Patient seen post , for diabetes Currently laying in bed, in no acute distress Reports some pain at incision, however otherwise doing quite well No fevers chills, chest pain shortness of breath no nausea vomiting Review of Systems Review of Systems: All systems reviewed & are unremarkable except as noted in Subjective Physical Exam Physical Exam: General: Young female laying in bed, in no acute distress HEENT: Normocephalic, atraumatic, EOMI, PERRL Resp: CTAB, no wheezing, rhonchi, CV: RRR Abdomen: Slightly tender to palpation, status post Extremities: no LE edema Skin: warm. dry Results & Data Results & Data ([facility]) Vital Signs (Past 12 Hours) Vital Signs Temp Pulse Pulse Resp BP BP Pulse Ox 10/13/21 07:30 36.7 C 77 20 155/84 H 98 10/13/21 04:54 96 10/13/21 04:53 36.8 C 16 131/79 97 10/13/21 04:40 14 96 10/13/21 03:45 15 96 10/13/21 02:21 14 96 10/13/21 01:30 16 97 10/13/21 00:54 36.8 C 16 98 10/13/21 00:25 87 14 136/83 100 Laboratory Results 06/22/22 06/22/22 06/21/22 Range/Units 08:13 08:13 18:52 WBC 13.53 H (4.8-10.8) K/uL RBC 3.25 L (4.2-5.4) M/uL Hgb 8.5 L (12.0-16.0) g/dL Hct 25.8 L (37-47) % MCV 79.4 L (80-100) fL MCH 26.2 (25-34) pg MCHC 32.9 (32-36) g/dL RDW Std Deviation 38.3 (36.4-46.3) fL RDW Coeff of Willa 13.2 (11.5-14.5) % Plt Count 186 (130-400) K/uL MPV 11.2 H (7.4-10.4) fL Immature Gran % (Auto) 0.7 % Neut % (Auto) 68.6 % Lymph % (Auto) 21.1 % [place] % (Auto) 7.8 % Eos % (Auto) 1.6 % Baso % (Auto) 0.2 % Neut # (Auto) 9.28 H (1.4-6.5) K/uL Lymph # (Auto) 2.85 (1.2-3.4) K/uL [place] # (Auto) 1.06 H (0.11-0.59) K/uL Eos # (Auto) 0.22 (0-0.5) K/uL Baso # (Auto) 0.03 (0-0.2) K/uL Immature Gran # (Auto) 0.09 H (0.00-0.02) K/uL Cord ABG pH (7.1-7.38) Cord ABG pCO2 (39.1-73.5) mmHg Cord ABG pO2 (4.1-31.7) mmHg Cord ABG HCO3 (19.7-28.5) mmol/L Cord ABG Base Excess (-9-1.8) mEq/L Cord ABG O2 Sat (<60) % Cord VBG pH 7.28 (7.20-7.44) Cord VBG pCO2 50 (30.4-57.2) mmHg Cord VBG pO2 32 (14.1-43.3) mmHg Cord VBG HCO3 24 (18.4-26.8) mmol/L Cord VBG Base Excess -3.7 (-7.7-1.9) mEq/L Cord VBG O2 Sat 66.9 (<68) % Blood Gas Comments SHELL Sodium 136 (136-145) mmol/L Potassium 4.0 (3.5-5.1) mmol/L Chloride 105 (98-107) mmol/L Carbon Dioxide 25 (21-32) mmol/L Anion Gap 6 (3-11) BUN 14 (6-23) mg/dl Creatinine 0.65 (0.6-1.2) mg/dl Est Cr Clr Drug Dosing 97.6 ml/min Est GFR ( Amer) 132.4 ml/min Est GFR (Non-Af Amer) 114.2 ml/min BUN/Creatinine Ratio 21.5 H (10-20) Glucose 83 (70-99(Fasting)) mg/dl Calcium 8.1 L (8.5-10.1) mg/dl SARS-CoV-2, RNA, NAAT (NEGATIVE) Blood Type Antibody Screen 10/12/21 10/12/21 10/12/21 Range/Units 18:52 16:08 16:08 WBC 13.98 H (4.8-10.8) K/uL RBC 3.84 L (4.2-5.4) M/uL Hgb 10.3 L (12.0-16.0) g/dL Hct 30.5 L (37-47) % MCV 79.4 L (80-100) fL MCH 26.8 (25-34) pg MCHC 33.8 (32-36) g/dL RDW Std Deviation 37.9 (36.4-46.3) fL RDW Coeff of Willa 13.1 (11.5-14.5) % Plt Count 209 (130-400) K/uL MPV 11.3 H (7.4-10.4) fL Immature Gran % (Auto) 0.8 % Neut % (Auto) 73.9 % Lymph % (Auto) 17.1 % [place] % (Auto) 6.0 % Eos % (Auto) 2.0 % Baso % (Auto) 0.2 % Neut # (Auto) 10.33 H (1.4-6.5) K/uL Lymph # (Auto) 2.39 (1.2-3.4) K/uL [place] # (Auto) 0.84 H (0.11-0.59) K/uL Eos # (Auto) 0.28 (0-0.5) K/uL Baso # (Auto) 0.03 (0-0.2) K/uL Immature Gran # (Auto) 0.11 H (0.00-0.02) K/uL Cord ABG pH 7.16 (7.1-7.38) Cord ABG pCO2 89 H (39.1-73.5) mmHg Cord ABG pO2 < 6 (4.1-31.7) mmHg Cord ABG HCO3 32 H (19.7-28.5) mmol/L Cord ABG Base Excess 0.3 (-9-1.8) mEq/L Cord ABG O2 Sat < 60.0 (<60) % Cord VBG pH (7.20-7.44) Cord VBG pCO2 (30.4-57.2) mmHg Cord VBG pO2 (14.1-43.3) mmHg Cord VBG HCO3 (18.4-26.8) mmol/L Cord VBG Base Excess (-7.7-1.9) mEq/L Cord VBG O2 Sat (<68) % Blood Gas Comments SHELL Sodium (136-145) mmol/L Potassium (3.5-5.1) mmol/L Chloride (98-107) mmol/L Carbon Dioxide (21-32) mmol/L Anion Gap (3-11) BUN (6-23) mg/dl Creatinine (0.6-1.2) mg/dl Est Cr Clr Drug Dosing ml/min Est GFR ( Amer) ml/min Est GFR (Non-Af Amer) ml/min BUN/Creatinine Ratio (10-20) Glucose (70-99(Fasting)) mg/dl Calcium (8.5-10.1) mg/dl SARS-CoV-2, RNA, NAAT (NEGATIVE) Blood Type O Positive Antibody Screen NEGATIVE 10/12/21 Range/Units 15:54 WBC (4.8-10.8) K/uL RBC (4.2-5.4) M/uL Hgb (12.0-16.0) g/dL Hct (37-47) % MCV (80-100) fL MCH (25-34) pg MCHC (32-36) g/dL RDW Std Deviation (36.4-46.3) fL RDW Coeff of Willa (11.5-14.5) % Plt Count (130-400) K/uL MPV (7.4-10.4) fL Immature Gran % (Auto) % Neut % (Auto) % Lymph % (Auto) % [place] % (Auto) % Eos % (Auto) % Baso % (Auto) % Neut # (Auto) (1.4-6.5) K/uL Lymph # (Auto) (1.2-3.4) K/uL [place] # (Auto) (0.11-0.59) K/uL Eos # (Auto) (0-0.5) K/uL Baso # (Auto) (0-0.2) K/uL Immature Gran # (Auto) (0.00-0.02) K/uL Cord ABG pH (7.1-7.38) Cord ABG pCO2 (39.1-73.5) mmHg Cord ABG pO2 (4.1-31.7) mmHg Cord ABG HCO3 (19.7-28.5) mmol/L Cord ABG Base Excess (-9-1.8) mEq/L Cord ABG O2 Sat (<60) % Cord VBG pH (7.20-7.44) Cord VBG pCO2 (30.4-57.2) mmHg Cord VBG pO2 (14.1-43.3) mmHg Cord VBG HCO3 (18.4-26.8) mmol/L Cord VBG Base Excess (-7.7-1.9) mEq/L Cord VBG O2 Sat (<68) % Blood Gas Comments Sodium (136-145) mmol/L Potassium (3.5-5.1) mmol/L Chloride (98-107) mmol/L Carbon Dioxide (21-32) mmol/L Anion Gap (3-11) BUN (6-23) mg/dl Creatinine (0.6-1.2) mg/dl Est Cr Clr Drug Dosing ml/min Est GFR ( Amer) ml/min Est GFR (Non-Af Amer) ml/min BUN/Creatinine Ratio (10-20) Glucose (70-99(Fasting)) mg/dl Calcium (8.5-10.1) mg/dl SARS-CoV-2, RNA, NAAT NEGATIVE (NEGATIVE) Blood Type Antibody Screen Medications Administered Current Inpatient Medications Acetaminophen (Acetaminophen 325 Mg Tab) 650 mg PO Q4H PRN PRN Reason: Pain Stop: 11/11/21 18:19 Benzocaine (Benzocaine 20% Aer Spr 82.5 Gm Can) 1 appln EXT UD PRN PRN Reason: use on skin as needed Stop: 11/11/21 19:22 Bisacodyl (Bisacodyl 5 Mg Tabec) 5 mg PO 2000 [facility] Stop: 10/13/21 20:01 Bisacodyl (Bisacodyl 10 Mg Supp) 10 mg WA PRN PRN PRN Reason: Constipation Stop: 11/13/21 18:57 Dextrose (Dextrose 50% 50 Ml Syringe) 25 - 50 ml IV UD PRN; Protocol PRN Reason: Hypoglycemia Protocol Stop: 11/11/21 22:58 Diphenhydramine HCl (Diphenhydramine 50 Mg/Ml Vial) 25 mg IV Q6H PRN PRN Reason: pruritis Stop: 10/13/21 12:21 Last Admin: 10/13/21 03:06 Dose: 25 mg Documented by: Diphenhydramine HCl (Diphenhydramine Capsule 25 Mg Cap) 25 mg PO QID PRN PRN Reason: Itching Stop: 11/12/21 12:20 Diphenhydramine HCl (Diphenhydramine 50 Mg/Ml Vial) 25 mg IV QID PRN PRN Reason: Itching Stop: 11/12/21 12:20 Docusate Sodium (Docusate Sodium 100 Mg Cap) 100 mg PO DAILY@, [facility] Stop: 11/11/21 20:59 Last Admin: 10/13/21 08:46 Dose: Not Given Documented by: Ephedrine Sulfate (Ephedrine Sulfate 50 Mg/Ml Amp) 10 mg IV Q5M PRN PRN Reason: Hypotension Stop: 10/13/21 12:21 Ferrous Sulfate (Ferrous Sulfate 325 Mg Tab) 325 mg PO DAILY@08 [facility] Stop: 11/12/21 07:59 Last Admin: 10/13/21 08:50 Dose: 325 mg Documented by: Glucagon (Glucagon For Inj 1 Mg Vial) 1 mg SQ UD PRN; Protocol PRN Reason: Hypoglycemia Protocol Stop: 11/11/21 22:58 Glucose (Glucose 10 Tabs/Tube) 4 - 8 tabs PO UD PRN; Protocol PRN Reason: Hypoglycemia Protocol Stop: 11/11/21 22:58 Glucose (Glucose 40% Gel 15 Gm Tube) 15 - 30 gm PO UD PRN; Protocol PRN Reason: Hypoglycemia Protocol Stop: 11/11/21 22:58 Hydrocortisone (Hydrocortisone Acetate 25 Mg Supp) 25 mg WA BID PRN PRN Reason: Hemorrhoids Stop: 11/11/21 19:22 Hydromorphone HCl (Hydromorphone Inj 0.5 Mg/0.5 Ml Syr) 0.25 mg IV Q4H PRN PRN Reason: Breakthrough Surgical Pain Stop: 10/13/21 12:21 Last Admin: 10/13/21 01:27 Dose: 0.25 mg Documented by: Sodium Chloride (Nss 1000ml) 1,000 mls @ 15 mls/hr IV .Q24H KIR[facility] Stop: 10/13/21 12:21 Last Admin: 10/13/21 01:14 Dose: Not Given Documented by: Naloxone HCl 1 mg/ Sodium (Chloride) 1,002.5 mls @ 50 mls/hr IV .Q20H3M PRN PRN Reason: itching or nausea Stop: 10/13/21 12:21 Lactated Ringer's (Lr) 500 mls @ 999 mls/hr IV .Q31M PRN PRN Reason: Hypotension Stop: 10/13/21 12:21 Naloxone HCl 0.08 mg/ Syringe 2 mls @ 1 mls/min IV Q30M PRN; Protocol PRN Reason: Urinary Retention Stop: 10/13/21 12:21 Lactated Ringer's (Lr) 1,000 mls @ 125 mls/hr IV .Q8H KIRILL Stop: 11/11/21 19:22 Last Infusion: 10/13/21 07:39 Dose: Infused Documented by: Promethazine HCl 25 mg/ Sodium (Chloride) 51 mls @ 204 mls/hr IV Q4H PRN PRN Reason: Nausea And Vomiting Stop: 11/12/21 12:20 Ibuprofen (Ibuprofen 600 Mg Tab) 600 mg PO Q4H PRN PRN Reason: Pain Stop: 11/11/21 19:22 Insulin Aspart (Insulin Aspart Per Unit) 0 units SC ACHS [facility] Stop: 11/11/21 23:04 Last Admin: 10/13/21 08:50 Dose: 4 units Documented by: Insulin Detemir (Insulin Detemir Flexpen/Flex Touch 100 Units/Ml 3ml) 20 units SC HS [facility] Stop: 11/12/21 20:59 Ketorolac Tromethamine (Ketorolac 30 Mg/Ml Vial) 30 mg IV Q6H PRN PRN Reason: Breakthrough Surgical Pain Stop: 10/13/21 12:21 Ketorolac Tromethamine (Ketorolac 30 Mg/Ml Vial) 30 mg IV Q6H PRN PRN Reason: Pain Stop: 10/18/21 12:20 Levothyroxine Sodium (Levothyroxine Sodium 100 Mcg Tablet) 100 mcg PO DAILYBB [facility] Stop: 11/12/21 06:29 Last Admin: 10/13/21 08:45 Dose: 100 mcg Documented by: Magnesium Hydroxide (Magnesium Hydroxide Susp 30 Ml Udc) 30 ml PO HS PRN PRN Reason: Constipation Stop: 11/11/21 19:22 Meperidine HCl (Meperidine Hcl 50 Mg/Ml Carp) 50 - 75 mg IV Q4H PRN PRN Reason: Pain Stop: 10/27/21 12:20 Mesalamine (Mesalamine 800 Mg Tabcr) 1,600 mg PO QAM [facility] Stop: 11/12/21 10:44 Miscellaneous (No Narcotics Or Sedatives) 1 ea N/A UD [facility] Stop: 10/13/21 12:21 Miscellaneous (Carbohydrates For Hypoglycemia ) 15 - 30 gm PO UD PRN PRN Reason: Hypoglycemia Protocol Stop: 11/11/21 22:58 Miscellaneous Information (Dc Intraspinal Morphine) 1 ea N/A UD [facility] Stop: 10/13/21 12:21 Nalbuphine HCl (Nalbuphine Hcl Inj 10 Mg/Ml Amp) 5 mg IV Q10M PRN PRN Reason: itching or nausea Stop: 10/13/21 12:21 Naloxone HCl (Naloxone Hcl 0.4 Mg/1 Ml Vial/Carp) 0.1 mg IV UD PRN PRN Reason: Respiratory Depression Stop: 10/13/21 12:21 Ondansetron HCl (Ondansetron Inj 2 Mg/Ml 2 Ml Vial) 4 mg IV Q4H PRN PRN Reason: Nausea And Vomiting Stop: 11/12/21 12:20 Oxycodone/Acetaminophen (Oxycodone/Acetaminophen 5mg/325mg Tab) 1 - 2 tab PO Q4H PRN PRN Reason: Pain Stop: 10/27/21 12:20 Prenat Multivit/Nowata/Iron/Folic Ac ( Vitamin 1 Tab) 1 tab PO DAILY@08 [facility] Stop: 11/12/21 07:59 Last Admin: 10/13/21 08:50 Dose: 1 tab Documented by: Sennosides (Senna 8.6 Mg Tab) 17.2 mg PO HS PRN PRN Reason: Constipation Stop: 11/11/21 19:22 Sertraline HCl (Sertraline Hcl 50 Mg Tablet) 25 mg PO DAILY [facility] Stop: 11/12/21 08:59 Last Admin: 10/13/21 08:50 Dose: 25 mg Documented by: Simethicone (Simethicone 80 Mg Chew) 80 mg PO DAILY@08,13,17,21 [facility] Stop: 11/11/21 20:59 Last Admin: 10/13/21 08:50 Dose: 80 mg Documented by:
[2021-10-13] MEDS: MESALAMINE 800 MG TABCR PO SCH (11:53)
[2021-10-13] MEDS ORDERED: KETOROLAC 30 MG/ML VIAL IV PRN (12:21)
[2021-10-13] MEDS ORDERED: diphenhydrAMINE Capsule 25 MG CAP PO PRN (12:21)
[2021-10-13] MEDS ORDERED: MEPERIDINE HCL 50 MG/ML CARP IV PRN (12:21)
[2021-10-13] MEDS ORDERED: ONDANSETRON INJ 2 MG/ML 2 ML VIAL IV PRN (12:21)
[2021-10-13] MEDS ORDERED: PROMETHAZINE HCL 25 MG in SODIUM CHLORIDE 0.9% 50 ML IV PRN (12:21)
[2021-10-13] MEDS ORDERED: diphenhydrAMINE 50 MG/ML VIAL IV PRN (12:21)
[2021-10-13] MEDS: oxyCODONE/ACETAMINOPHEN 5mg/325mg TAB PO PRN ×2 (15:33→21:37)
[2021-10-13] MEDS ORDERED: bisacodyL 5 MG TABEC PO SCH (20:00)
[2021-10-13] MEDS ORDERED: INSULIN DETEMIR FLEXPEN/FLEX TOUCH 100 UNITS/ML 3ML SC SCH (21:00)
--- NOTE | 2021-10-14 06:04 | Obstetrical Progress Note ---
Date of Service October 14, 2021 Assessment & Plan (1) Encounter for care and examination after delivery: Plan: Patient is a 36-year-old now female status post delivered at 38 and 2/7 weeks postop day 2. -GBS(-), Rubella immune, O+, Antibody negative -Continue routine care, discharge home today, went over discharge instructions with patient -Pain control with tylenol, Ibuprofen, oxycodone when able. -Ambulation as tolerated and encouraged -Encouraged , discuss with counsellor if necessary, continue supplementing with formula -Hgb 8.4, but asymptomatic -OB f/u appointment in [address] Bae Admission and Anticipated Discharge Date Admission Date: October 12, 2021 Supervising Physician Co-Signing Physician Notes Resident Physician Supervision Note: I interviewed and examined the patient. Discussed with Dr. Bush and agree with findings and plan as documented in the note. Any exceptions or clarifications are listed here: [None] Documented By: Andra Lomas MD, FACOG Subjective Patient is a 36-year-old now female status post delivered at 38 and 2/7 weeks postop day 2. complicated by advanced maternal age, type 2 diabetes, and hypothyroidism. Patient overall doing well. Pain control improved from yesterday, now 3 out of 10. Unfortunately her baby had to go to the NICU at [facility] and has been unable to breast-feed her child because of this. Passing gas and urinating without difficulty. Notes that her blood sugar is "low" and reporting a level of 86 at the time of interview. Would like to get something to eat. Patient would like to go home today if able. Denies chest pain, shortness of breath, nausea, vomiting, calf pain, or headaches. No other complaints at this time. Review of Systems Review of Systems: All systems reviewed & are unremarkable except as noted in HPI & below Physical Exam Constitutional: WD/WN, vitals as above Eyes: + anicteric sclerae Neck: trachea midline, no thyromegaly Respiratory: normal respiratory effort, lungs clear to auscultation Cardiovascular: RRR, no murmur, no edema Gastrointestinal (Abdomen): Inspection/Auscultation: normal bowel sounds and + abdominal surgical incision (dry and intact) Percussion/Palpation: abdomen soft Musculoskeletal: Head/Neck/Chest: normocephalic and head atraumatic Skin: no rashes, warm and dry Neurologic: moves all extremities Psychiatric: A+Ox3, euthymic affect Genitourinary: Uterus palpated at the level of umbilicus, firm Results & Data ([facility]) Vital Signs (Past 12 Hours) Vital Signs Temp Pulse Resp BP Pulse Ox 10/14/21 00:26 36.5 C 84 18 128/76 97
[2021-10-14] MEDS: oxyCODONE/ACETAMINOPHEN 5mg/325mg TAB PO PRN ×2 (07:22→12:59)
[2021-10-14] MEDS: LEVOTHYROXINE SODIUM 100 MCG TABLET PO SCH (07:23)
[2021-10-14 07:33] LABS: Hematocrit (blood only) 25.3 % (37-47); Hemoglobin 8.4 g/dL (12.0-16.0)
[2021-10-14 07:51] LABS: BUN Creatinine Ratio 17.9 (10-20); Calcium 8.1 mg/dl (8.5-10.1); Creatinine Clr Calc Pharmacy 94.7 ml/min; Est GFR (African American) 131.1 ml/min; Est GFR (Non-African American) 113.1 ml/min
[2021-10-14] MEDS: DOCUSATE SODIUM 100 MG CAP PO SCH (08:37)
[2021-10-14] MEDS: SIMETHICONE 80 MG CHEW PO SCH ×2 (08:38→12:59)
[2021-10-14] MEDS: FERROUS SULFATE 325 MG TAB PO SCH (08:38)
[2021-10-14] MEDS: PRENATAL VITAMIN 1 TAB PO SCH (08:38)
[2021-10-14] MEDS: SERTRALINE HCL 50 MG TABLET PO SCH (08:38)
[2021-10-14] MEDS: MESALAMINE 800 MG TABCR PO SCH (08:39)
[2021-10-14] MEDS: INSULIN ASPART PER UNIT SC SCH ×2 (08:44→11:45)
--- NOTE | 2021-10-14 09:30 | Hospitalist Progress Note ---
Date of Service October 14, 2021 Assessment & Plan (1) Diabetes mellitus affecting : Plan: Encounter for care and examination after delivery: state DM2 previously on oral medications, on insulin since Well-controlled as of recent outpatient hemoglobin A1c of 7 last August 2021 Basal insulin adjusted Patient was using 48 units of Levemir (while ), decreased to 20 units now ISS BG goal 110-140, carb count coverage -now using about 4 units with meals Follows with endocrinology, Taco Donaldson PA-C at [facility] Currently she has appointment on October 27. Will contact endocrinology office, to request earlier follow-up appointment. Continue to closely monitor blood sugar levels while inpatient and at home after discharge. Hypothyroidism, euthyroid as of recent outpatient TSH - will likely need adjustment of dose as well post- Follows w/ endocrinology - Taco Donaldson PA-C at [facility] IBD, stable on Asacol regimen Anemia of DVT prophylaxis. SCDs Thank you very much for this consultation. Admission and Anticipated Discharge Date Admission Date: October 12, 2021 Subjective Patient seen post , for diabetes Currently sitting up in bed, in no acute distress Reports some pain at incision, however otherwise doing quite well No fevers chills, chest pain shortness of breath no nausea vomiting Review of Systems Review of Systems: All systems reviewed & are unremarkable except as noted in Subjective Physical Exam Physical Exam: General: Young female sitting up in bed, in no acute distress HEENT: Normocephalic, atraumatic, EOMI, PERRL Resp: CTAB, no wheezing, rhonchi, CV: RRR Abdomen: Slightly tender to palpation, status post Extremities: no LE edema Skin: warm. dry Results & Data Results & Data ([facility]) Vital Signs (Past 12 Hours) Vital Signs Temp Pulse Resp BP Pulse Ox 10/14/21 07:30 36.8 C 86 18 136/84 98 10/14/21 00:26 36.5 C 84 18 128/76 97 Laboratory Results 10/14/21 10/14/21 10/13/21 Range/Units 07:02 07:02 08:13 WBC (4.8-10.8) K/uL RBC (4.2-5.4) M/uL Hgb 8.4 L (12.0-16.0) g/dL Hct 25.3 L (37-47) % MCV (80-100) fL MCH (25-34) pg MCHC (32-36) g/dL RDW Std Deviation (36.4-46.3) fL RDW Coeff of Willa (11.5-14.5) % Plt Count (130-400) K/uL MPV (7.4-10.4) fL Immature Gran % (Auto) % Neut % (Auto) % Lymph % (Auto) % [place] % (Auto) % Eos % (Auto) % Baso % (Auto) % Neut # (Auto) (1.4-6.5) K/uL Lymph # (Auto) (1.2-3.4) K/uL Pitt # (Auto) (0.11-0.59) K/uL Eos # (Auto) (0-0.5) K/uL Baso # (Auto) (0-0.2) K/uL Immature Gran # (Auto) (0.00-0.02) K/uL Sodium 139 136 (136-145) mmol/L Potassium 4.0 4.0 (3.5-5.1) mmol/L Chloride 107 105 (98-107) mmol/L Carbon Dioxide 28 25 (21-32) mmol/L Anion Gap 4 6 (3-11) BUN 12 14 (6-23) mg/dl Creatinine 0.67 0.65 (0.6-1.2) mg/dl Est Cr Clr Drug Dosing 94.7 97.6 ml/min Est GFR ( Amer) 131.1 132.4 ml/min Est GFR (Non-Af Amer) 113.1 114.2 ml/min BUN/Creatinine Ratio 17.9 21.5 H (10-20) Glucose 76 83 (70-99(Fasting)) mg/dl Calcium 8.1 L 8.1 L (8.5-10.1) mg/dl 10/13/ Range/Units 08:13 WBC 13.53 H (4.8-10.8) K/uL RBC 3.25 L (4.2-5.4) M/uL Hgb 8.5 L (12.0-16.0) g/dL Hct 25.8 L (37-47) % MCV 79.4 L (80-100) fL MCH 26.2 (25-34) pg MCHC 32.9 (32-36) g/dL RDW Std Deviation 38.3 (36.4-46.3) fL RDW Coeff of Willa 13.2 (11.5-14.5) % Plt Count 186 (130-400) K/uL MPV 11.2 H (7.4-10.4) fL Immature Gran % (Auto) 0.7 % Neut % (Auto) 68.6 % Lymph % (Auto) 21.1 % Pitt % (Auto) 7.8 % Eos % (Auto) 1.6 % Baso % (Auto) 0.2 % Neut # (Auto) 9.28 H (1.4-6.5) K/uL Lymph # (Auto) 2.85 (1.2-3.4) K/uL Pitt # (Auto) 1.06 H (0.11-0.59) K/uL Eos # (Auto) 0.22 (0-0.5) K/uL Baso # (Auto) 0.03 (0-0.2) K/uL Immature Gran # (Auto) 0.09 H (0.00-0.02) K/uL Sodium (136-145) mmol/L Potassium (3.5-5.1) mmol/L Chloride (98-107) mmol/L Carbon Dioxide (21-32) mmol/L Anion Gap (3-11) BUN (6-23) mg/dl Creatinine (0.6-1.2) mg/dl Est Cr Clr Drug Dosing ml/min Est GFR ( Amer) ml/min Est GFR (Non-Af Amer) ml/min BUN/Creatinine Ratio (10-20) Glucose (70-99(Fasting)) mg/dl Calcium (8.5-10.1) mg/dl Medications Administered Current Inpatient Medications Acetaminophen (Acetaminophen 325 Mg Tab) 650 mg PO Q4H PRN PRN Reason: Pain Stop: 11/11/21 18:19 Benzocaine (Benzocaine 20% Aer Spr 82.5 Gm Can) 1 appln EXT UD PRN PRN Reason: use on skin as needed Stop: 11/11/21 19:22 Bisacodyl (Bisacodyl 10 Mg Supp) 10 mg GA PRN PRN PRN Reason: Constipation Stop: 11/13/21 18:57 Dextrose (Dextrose 50% 50 Ml Syringe) 25 - 50 ml IV UD PRN; Protocol PRN Reason: Hypoglycemia Protocol Stop: 11/11/21 22:58 Diphenhydramine HCl (Diphenhydramine Capsule 25 Mg Cap) 25 mg PO QID PRN PRN Reason: Itching Stop: 11/12/21 12:20 Diphenhydramine HCl (Diphenhydramine 50 Mg/Ml Vial) 25 mg IV QID PRN PRN Reason: Itching Stop: 11/12/21 12:20 Docusate Sodium (Docusate Sodium 100 Mg Cap) 100 mg PO DAILY@ [facility] Stop: 11/11/21 20:59 Last Admin: 10/14/21 08:37 Dose: 100 mg Documented by: Ferrous Sulfate (Ferrous Sulfate 325 Mg Tab) 325 mg PO DAILY@ [facility] Stop: 11/12/21 07:59 Last Admin: 10/14/21 08:38 Dose: 325 mg Documented by: Glucagon (Glucagon For Inj 1 Mg Vial) 1 mg SQ UD PRN; Protocol PRN Reason: Hypoglycemia Protocol Stop: 11/11/21 22:58 Glucose (Glucose 10 Tabs/Tube) 4 - 8 tabs PO UD PRN; Protocol PRN Reason: Hypoglycemia Protocol Stop: 11/11/21 22:58 Glucose (Glucose 40% Gel 15 Gm Tube) 15 - 30 gm PO UD PRN; Protocol PRN Reason: Hypoglycemia Protocol Stop: 11/11/21 22:58 Hydrocortisone (Hydrocortisone Acetate 25 Mg Supp) 25 mg GA BID PRN PRN Reason: Hemorrhoids Stop: 11/11/21 19:22 Lactated Ringer's (Lr) 1,000 mls @ 125 mls/hr IV .Q8H [facility] Stop: 11/11/21 19:22 Last Admin: 10/13/21 11:50 Dose: Not Given Documented by: Promethazine HCl 25 mg/ Sodium (Chloride) 51 mls @ 204 mls/hr IV Q4H PRN PRN Reason: Nausea And Vomiting Stop: 11/12/21 12:20 Ibuprofen (Ibuprofen 600 Mg Tab) 600 mg PO Q4H PRN PRN Reason: Pain Stop: 11/11/21 19:22 Insulin Aspart (Insulin Aspart Per Unit) 0 units SC ACHS [facility] Stop: 11/11/21 23:04 Last Admin: 10/14/21 08:44 Dose: 3 units Documented by: Insulin Detemir (Insulin Detemir Flexpen/Flex Touch 100 Units/Ml 3ml) 20 units SC HS [facility] Stop: 11/12/21 20:59 Last Admin: 10/13/21 21:17 Dose: 20 units Documented by: Ketorolac Tromethamine (Ketorolac 30 Mg/Ml Vial) 30 mg IV Q6H PRN PRN Reason: Pain Stop: 10/18/21 12:20 Levothyroxine Sodium (Levothyroxine Sodium 100 Mcg Tablet) 100 mcg PO DAILYBB [facility] Stop: 11/12/21 06:29 Last Admin: 10/14/21 07:23 Dose: 100 mcg Documented by: Magnesium Hydroxide (Magnesium Hydroxide Susp 30 Ml Udc) 30 ml PO HS PRN PRN Reason: Constipation Stop: 11/11/21 19:22 Meperidine HCl (Meperidine Hcl 50 Mg/Ml Carp) 50 - 75 mg IV Q4H PRN PRN Reason: Pain Stop: 10/27/21 12:20 Mesalamine (Mesalamine 800 Mg Tabcr) 1,600 mg PO QAM [facility] Stop: 11/12/21 10:44 Last Admin: 10/14/21 08:39 Dose: 1,600 mg Documented by: Miscellaneous (Carbohydrates For Hypoglycemia ) 15 - 30 gm PO UD PRN PRN Reason: Hypoglycemia Protocol Stop: 11/11/21 22:58 Ondansetron HCl (Ondansetron Inj 2 Mg/Ml 2 Ml Vial) 4 mg IV Q4H PRN PRN Reason: Nausea And Vomiting Stop: 11/12/21 12:20 Oxycodone/Acetaminophen (Oxycodone/Acetaminophen 5mg/325mg Tab) 1 - 2 tab PO Q4H PRN PRN Reason: Pain Stop: 10/27/21 12:20 Last Admin: 10/14/21 07:22 Dose: 1 tab Documented by: Prenat Multivit/[place]/Iron/Folic Ac ( Vitamin 1 Tab) 1 tab PO DAILY@08 [facility] Stop: 11/12/21 07:59 Last Admin: 10/14/21 08:38 Dose: 1 tab Documented by: Sennosides (Senna 8.6 Mg Tab) 17.2 mg PO HS PRN PRN Reason: Constipation Stop: 11/11/21 19:22 Sertraline HCl (Sertraline Hcl 50 Mg Tablet) 25 mg PO DAILY [facility] Stop: 11/12/21 08:59 Last Admin: 10/14/21 08:38 Dose: 25 mg Documented by: Simethicone (Simethicone 80 Mg Chew) 80 mg PO DAILY@08,13,17,21 [facility] Stop: 11/11/21 20:59 Last Admin: 10/14/21 08:38 Dose: 80 mg Documented by:
[2021-10-14] MEDS ORDERED: bisacodyL 10 MG SUPP PR PRN (18:58)
--- NOTE | 2021-10-18 09:40 | Discharge Summary ---
Date of Service October 18, 2021 Admission Exam (Per Admitting) Constitutional WD/WN, vitals as above well developed and well nourished Respiratory normal respiratory effort, lungs clear to auscultation normal respiratory effort Cardiovascular RRR, no murmur, no edema Gastrointestinal (Abdomen) normal bowel sounds, soft, nontender, no hepatosplenomegaly Discharge Data Consultations 10/12/21 15:46 Consult Anesthesiology Stat 10/12/21 19:40 Consult Hospitalist Routine Procedures Performed Operation Date: 10/12/21 17:50 Actual Procedures p Section in LD for living female child at 1825(Bilateral) - Sergey Bae MD, [facility] Course (1) Encounter for care and examination after delivery: Patient is a 36-year-old now female status post delivered at 38 and 2/7 weeks postop day 2. -GBS(-), Rubella immune, O+, Antibody negative -Continue routine care, discharge home today, went over discharge instructions with patient -Pain control with tylenol, Ibuprofen, oxycodone when able. -Ambulation as tolerated and encouraged -Encouraged , discuss with counsellor if necessary, continue supplementing with formula -Hgb 8.4, but asymptomatic -OB f/u appointment in [address] Bae Coding Level of Care Code None Diagnoses Encounter for care and examination after delivery Z39.2
== END 2021-10-14 15:02 | disposition home or self-care (01) | DRG 788 ==
LOC: OPB 15:37 → 4S1 15:41 → 4E2 21:26